=== PATIENT | male | born 1955 | race Caucasian/White ===

== ENCOUNTER → 2021-05-10 08:04 | Outpatient (CLI) | payer OTHER, SELFPAY ==
--- NOTE | 2021-05-10 | DI.ECHO.S_ITS ---
[facility]---------+ [facility] +---------+ : : [address] : [address] : : : : [id number] : : : : Phone: [phone] +---------+ Echocardiogram Report + + :Name: MITESH MENDOZA Study Date: 05/10/2021 Height: 71.5 in: :[facility] ReadingLocation: Weight: 260 lb : : Gender: Male BSA: 2.4 m2 : :: 1955 Age: 66 yrs BP: 167/99 mmHg: :Reason For Study: HYPERTENSION : :Ordering Physician: STEVO, : :NIKOLAS Montano Performed By: Isidra Murray : :Referring: NIKOLAS WHITESIDE : + + Interpretation Summary The left ventricle is mildly dilated. The ejection fraction is estimated to be 60-65%. In some of the apical views, there appears to be hypokinesis of mid to distal anterolateral wall. The right ventricle is at the upper limits of normal in size.The right ventricular systolic function is normal. There is mild mitral regurgitation. There is mild tricuspid regurgitation. The right ventricular systolic pressure is estimated to be at least 37 mmHg based on an estimated right atrial pressure of 3 mm Hg. The ascending aorta is moderately enlarged. 4.8 cm in diameter. Mild atherosclerotic plaque(s) in the aortic arch. Procedure: A two-dimensional transthoracic echocardiogram with color flow and Doppler was performed. The study quality was technically adequate. There is no prior echocardiogram noted for this patient. The patient was in sinus rhythm with heart rates between 53-68 bpm during the exam. Left Ventricle: The left ventricle is mildly dilated. Left ventricular wall thickness is mildly increased. There is no thrombus. The ejection fraction is estimated to be 60-65%. In some of the apical views, there appears to be hypokinesis of mid to distal anterolateral wall. No significant diastolic dysfunction. Right Ventricle: The right ventricle is at the upper limits of normal in size. The right ventricular systolic function is normal. Atria: The left atrium is mildly dilated. Right atrial size is normal. There is no Doppler evidence for an interatrial shunt. Mitral Valve: There is mild mitral annular calcification. There is mild mitral regurgitation. Aortic Valve: The aortic valve opens well. Aortic valve appears to be tricuspid. There is no aortic valve stenosis. There is trace aortic regurgitation. Tricuspid Valve: The tricuspid valve is normal. There is mild tricuspid regurgitation. The right ventricular systolic pressure is estimated to be at least 37 mmHg based on an estimated right atrial pressure of 3 mm Hg. Pulmonic Valve: The pulmonic valve leaflets are thin and pliable; valve motion is normal. There is trace pulmonic regurgitation. Great Vessels: The aortic root is mildly dilated. The ascending aorta is moderately enlarged. Mild atherosclerotic plaque(s) in the aortic arch. The IVC is of normal diameter and collapses greater than 50% with a sniff. This suggests a low right atrial pressure of 3 mm Hg. Pericardium/ Pleura There is no pericardial effusion. There is no pleural effusion. MMode/2D Measurements & Calculations LVIDd: 6.4 cm LVOT diam: 2.3 cm LVIDs: 4.4 cm Ao root diam: 4.1 cm FS: 31.9 % asc Aorta Diam: 4.8 cm IVSd: 1.1 cm Ao Arch Diam (Prox Trans): 3.8 cm LVPWd: 1.0 cm LV osei. diameter/BSA (cm/m^2): 2.7 LV sys. diameter/BSA (cm/m^2): 1.8 LA A2 area: 27.5 cm2 RA long axis: 6.1 cm LA A4 area: 22.6 cm2 RA area: 21.8 cm2 LA length (vol): 5.9 cm RA vol: 66.6 ml LA vol: 88.8 ml RA : 28.1 ml/m2 LA vol index: 37.5 ml/m2 IVC diam: 1.7 cm RVD1 (basal): 4.4 cm RVD2 (mid): 4.0 cm TAPSE: 2.5 cm Doppler Measurements & Calculations Ao V2 max: 155.8 cm/sec LVOT Max Jose De Jesus: 118.6 cm/sec Ao V2 mean: 103.7 cm/sec LV V1 max P.6 mmHg Ao max P.7 mmHg LV V1 VTI: 26.5 cm Ao mean P.0 mmHg RENNY(I,D): 3.5 cm2 Ao V2 VTI: 31.7 cm RENNY(V,D): 3.2 cm2 sev ratio: 0.84 RENNY indexed to BSA (cm^2/m^2): 1.5 MV E max jose de jesus: 83.5 cm/sec TR max jose de jesus: 291.1 cm/sec MV A max jose de jesus: 60.4 cm/sec TR max P.9 mmHg MV E/A: 1.4 PA V2 max: 131.8 cm/sec Med Peak E' Jose De Jesus: 10.6 cm/sec PA V2 mean: 79.7 cm/sec E/E' med: 7.8 PA mean P.9 mmHg Lat Peak E' Jose De Jesus: 10.3 cm/sec PA pr(Accel): 56.7 mmHg E/E' lat: 8.1 E/e' average: 8.0 MV dec time: 0.25 sec SV(LVOT): 111.7 ml Reading Physician:05:13 PM
== END ==
PROVIDERS: Family Provider Physician Assistant; PCP Family Medicine; Referring Provider Family Medicine; Visit Provider Family Medicine
DX: I08.1 Rheumatic disorders of both mitral and tricuspid valves (principal); I70.0 Atherosclerosis of aorta; I77.810 Thoracic aortic ectasia; I10 Essential (primary) hypertension; R61 Generalized hyperhidrosis
CPT/HCPCS: 93306

== ENCOUNTER → 2022-02-06 12:45 | Outpatient (CLI) | payer MEDICARE, OTHER, SELFPAY ==
--- NOTE | 2022-02-06 | DI.ECHO.S_ITS ---
[place] +---------+ Hospital +---------+ : : [address] : : : : [phone] : : : : Phone: [phone] +---------+ Echocardiogram Report + + :Name: MITESH MENDOZA Study Date: 02/06/2022 Height: 71 in : :[facility] ReadingLocation: Weight: 280 lb : : Gender: Male BSA: 2.4 m2 : :: 1955 Age: 67 yrs BP: 157/88 mmHg: :Reason For Study: THORACIC AORTIC ECTASIA : :Ordering Physician: : :ADWOA RUEDA Performed By: Isidra Murray : :Referring: ADWOA RUEDA : + + Interpretation Summary The left ventricle is normal in size and wall thickness. The ejection fraction is estimated to be 60-65%. There has been no significant change in LVEF since the previous exam. The right ventricle is at the upper limits of normal in size. The right ventricular systolic function is normal. There is mild to moderate aortic regurgitation. Compared to the prior echo study, there has been an increase in the severity of aortic regurgitation. The aortic root is mildly dilated. 4.1 cm in diameter. Unchanged from the previous study. The ascending aorta is severely enlarged. 5.3 cm in diameter. Previously 4.8 cm in diameter. The aortic arch is mildly enlarged. 3.9 cm in diameter. Previously 3.8 cm in diameter. BP: 157/88 mmHg Procedure: A two-dimensional transthoracic echocardiogram with color flow and Doppler was performed. The study quality was technically adequate. Comparison is made with the echocardiogram of 05/10/2021. The patient was in sinus rhythm with heart rates between 57-66 bpm during the exam. Left Ventricle: The left ventricle is normal in size and wall thickness. There is no thrombus. The ejection fraction is estimated to be 60-65%. There has been no significant change since the previous exam. There are no focal wall motion abnormalities. MV E/A: 1.0 Med Peak E' Jose De Jesus: 7.4 cm/sec E/E' med: 8.5. Right Ventricle: The right ventricle is at the upper limits of normal in size. The right ventricular systolic function is normal. Atria: The left atrium is mildly dilated. There has been no significant change since the previous study. Right atrial size is normal. There is no Doppler evidence for an interatrial shunt. Mitral Valve: There is mild mitral annular calcification. There is trace mitral regurgitation. Aortic Valve: The aortic valve is trileaflet. The aortic valve opens well. There is no aortic valve stenosis. There is mild to moderate aortic regurgitation. Compared to the prior echo study, there has been an increase in the severity of aortic regurgitation. Tricuspid Valve: The tricuspid valve is normal in structure and function. There is trace tricuspid regurgitation. The right ventricular systolic pressure is estimated to be at least 23 mmHg based on an estimated right atrial pressure of 3 mm Hg. Pulmonic Valve: The pulmonic valve leaflets are thin and pliable; valve motion is normal. There is mild pulmonic regurgitation. Great Vessels: The aortic root is mildly dilated. The ascending aorta is severely enlarged. The aortic arch is mildly enlarged. The IVC is of normal diameter and collapses greater than 50% with a sniff. This suggests a low right atrial pressure of 3 mm Hg. Pericardium/ Pleura There is no pericardial effusion. There is no pleural effusion. MMode/2D Measurements & Calculations LVIDd: 5.3 cm LVOT diam: 2.5 cm LVIDs: 3.9 cm Ao root diam: 4.1 cm FS: 26.0 % asc Aorta Diam: 5.3 cm EPSS: 0.65 cm Ao Arch Diam (Prox Trans): 3.9 cm IVSd: 1.0 cm LVPWd: 0.93 cm LV osei. diameter/BSA (cm/m^2): 2.2 LV sys. diameter/BSA (cm/m^2): 1.6 LA A2 area: 28.4 cm2 RA long axis: 5.8 cm LA A4 area: 22.1 cm2 RA area: 20.7 cm2 LA length (vol): 5.7 cm RA vol: 62.8 ml LA vol: 92.9 ml RA : 25.8 ml/m2 LA vol index: 38.2 ml/m2 IVC diam: 1.4 cm RVD1 (basal): 4.0 cm RVD2 (mid): 3.6 cm TAPSE: 2.3 cm Doppler Measurements & Calculations Ao V2 max: 170.3 cm/sec LVOT Max Jose De Jesus: 103.1 cm/sec Ao V2 mean: 107.7 cm/sec LV V1 max P.3 mmHg Ao max P.6 mmHg LV V1 VTI: 21.2 cm Ao mean P.5 mmHg RENNY(I,D): 3.0 cm2 Ao V2 VTI: 34.4 cm RENNY(V,D): 2.9 cm2 sev ratio: 0.61 RENNY indexed to BSA (cm^2/m^2): 1.2 MV E max jose de jesus: 62.3 cm/sec TR max jose de jesus: 225.5 cm/sec MV A max jose de jesus: 60.3 cm/sec TR max P.3 mmHg MV E/A: 1.0 PA V2 max: 134.1 cm/sec Med Peak E' Jose De Jesus: 7.4 cm/sec PA V2 mean: 81.2 cm/sec E/E' med: 8.5 PA mean P.9 mmHg Lat Peak E' Jose De Jesus: 10.1 cm/sec PA pr(Accel): 41.3 mmHg E/E' lat: 6.1 E/e' average: 7.3 MV dec time: 0.29 sec SV(LVOT): 101.6 ml Reading Physician:04:44 PM
== END ==
PROVIDERS: Family Provider Physician Assistant; PCP Student in an Organized Health Care Education/Training Program; Referring Provider Internal Medicine Cardiovascular Disease; Visit Provider Internal Medicine Cardiovascular Disease
DX: I77.810 Thoracic aortic ectasia (principal)
CPT/HCPCS: 93306

== ENCOUNTER → 2022-02-19 12:20 | Outpatient (CLI) | payer MEDICARE, OTHER, SELFPAY ==
--- NOTE | 2022-02-19 12:22 | DI.CT.S_ITS ---
PROCEDURE: CT ANGIO CHEST INDICATIONS: Thoracic aortic aneurysm, without rupture TECHNIQUE: After the administration of intravenous contrast, 2 mm thick sections acquired from the pulmonary apices to the posterior costophrenic angles. 3-dimensional maximum intensity projection (MIP) coronal and sagittal reformats were then acquired through the thorax. For radiation dose reduction, the following was used: automated exposure control, adjustment of mA and/or kV according to patient size. COMPARISON: None. FINDINGS: Image quality: Excellent. Aorta: The ascending aorta measures 5.3 cm. The aortic arch measures 3.0 cm. The descending aorta measures 3.0 cm. Lungs and pleura: No acute air space opacities. No pleural effusions or pneumothorax. Central and peripheral airways are patent and normal in caliber. Mediastinum: Heart size is normal. No pericardial effusion. No mediastinal adenopathy by size criteria. Thoracic aorta and central pulmonary arteries are normal in size. Esophagus is normal in caliber. No hiatal hernia. Bones and chest wall: No suspicious bony lesions. No vertebral body compression fractures. No axillary or supraclavicular adenopathy by size criteria. Thyroid gland is normal. Abdomen: Limited visualization of the upper abdomen shows no acute abnormality. IMPRESSION: 1. Aneurysmal dilatation of the ascending aorta measuring 5.3 cm. 2. No other significant abnormality of the chest. Dictated by: Donald Barrera M.D. on 02/19/2022 at 13:35 Approved by: Donald Barrera M.D. on 02/19/2022 at 13:43
== END ==
PROVIDERS: Family Provider Physician Assistant; PCP Student in an Organized Health Care Education/Training Program; Referring Provider Internal Medicine Cardiovascular Disease; Visit Provider Internal Medicine Cardiovascular Disease
DX: I71.2 Thoracic aortic aneurysm, without rupture (principal)
CPT/HCPCS: 71275; Q9967

== ENCOUNTER → 2022-08-01 10:07 | Outpatient (CLI) | payer MEDICARE, OTHER, SELFPAY ==
--- NOTE | 2022-08-01 | DI.CT.S_ITS ---
PROCEDURE: CT ANGIO CHEST INDICATIONS: Aneurysm of the ascending aorta, without rupture TECHNIQUE: After the administration of intravenous contrast, 2.5 mm thick sections acquired from the lung apices to the posterior lung bases. Maximum intensity projection (MIP) oblique sagittal reformats were then acquired parallel to the aortic arch. For radiation dose reduction, the following was used: automated exposure control. COMPARISON: [facility], CT, CT ANGIO CHEST, 02/19/2022, 13:17. FINDINGS: Image quality: Excellent. Aorta: There is mild aneurysmal dilatation of the ascending thoracic aorta measuring roughly 56 mm, which is slightly increased. No mural irregularity or contrast extravasation to suggest aortic injury. Mediastinum: No hematomas. Heart size is normal. No pericardial effusion. No mediastinal or hilar adenopathy by size criteria. Central pulmonary arteries are normal in size. Esophagus is normal in caliber. No hiatal hernia. Lungs and pleura: No acute airspace opacities. No pleural effusions or pneumothorax. Central and peripheral airways are patent and normal in caliber. Bones and chest wall: No axillary adenopathy by size criteria. Thyroid gland is within normal limits . No suspicious bony lesions. No vertebral body compression fractures. Abdomen: Visualized upper abdominal solid organs and bowel loops appear normal. IMPRESSION: 1. Increased aneurysmal dilatation of the ascending thoracic aorta. Dictated by: Natalie Chen M.D. on 08/01/2022 at 15:29 Transcribed by: AVERY on 08/01/2022 at 15:31 Approved by: Natalie Chen M.D. on 08/01/2022 at 16:44
--- NOTE | 2022-08-01 | DI.ECHO.S_ITS ---
[place] +---------+ [facility] +---------+ : : [address] : [address] : : : : [phone] : : : : Phone: [phone] +---------+ Echocardiogram Report + + :Name: MITESH MENDOZA Study Date: 08/01/2022 Height: 72 in : :[facility] ReadingLocation: Weight: 280 lb : : Gender: Male BSA: 2.5 m2 : :: 1955 Age: 67 yrs BP: 144/75 mmHg: :Reason For Study: ANEURSYM OF ASCENDING AORTA : :Ordering Physician: Maco, : :Dodie Performed By: EVA HORN : :Referring: Dodie Dewey : + + Interpretation Summary Normal sinus rhythm and uncontrolled hypertension. The left ventricle is normal in size and wall thickness. The ejection fraction is estimated to be 60-65%. Moderate LA enlargement; mildly dilated RV with normal RV function. There is mild to moderate aortic regurgitation. in the setting of mildly thickened and calcified leaflets, moderately dilated root (4.2 cm) and severely dilated ascending aorta measuring 5.6 cm in diameter. Compared to prior study 02/06/2022, ascending aorta diameter is up from 5.3 cm to 5.6 cm. Procedure: A two-dimensional transthoracic echocardiogram with color flow and Doppler was performed. The study quality was technically adequate. Comparison is made with the echocardiogram of 02/06/2022. The patient was in sinus rhythm with heart rates between 55-60 bpm during the exam. Left Ventricle: The left ventricle is normal in size. There is normal left ventricular wall thickness. Left ventricular systolic function is normal. The ejection fraction is estimated to be 60-65%. Right Ventricle: The right ventricle is mildly dilated. The right ventricular systolic function is normal. Atria: The left atrium is moderately dilated. The right atrium is normal in size. There is no Doppler evidence for an interatrial shunt. Mitral Valve: There is mild mitral annular calcification. There is mild mitral regurgitation. Aortic Valve: The aortic valve is trileaflet. The aortic valve opens well. There is no aortic valve stenosis. There is mild to moderate aortic regurgitation. Tricuspid Valve: The tricuspid valve is normal in structure and function. No tricuspid regurgitation. Pulmonary artery pressures cannot be estimated because of the lack of a measurable TR jet velocity. Pulmonic Valve: The pulmonic valve leaflets are thin and pliable; valve motion is normal. There is a trace or physiologic amount of pulmonic regurgitation. Great Vessels: The aortic root is mildly dilated. The aortic root is 4.2 cm. The ascending aorta is severely enlarged. The ascending aorta is 5.6 cm. The IVC is of normal diameter and collapses greater than 50% with a sniff. This suggests a low right atrial pressure of 3 mm Hg. Pericardium/ Pleura There is no pericardial effusion. There is no pleural effusion. MMode/2D Measurements & Calculations LVIDd: 5.9 cm LVOT diam: 2.3 cm LVIDs: 3.5 cm Ao root diam: 4.2 cm FS: 40.7 % asc Aorta Diam: 5.6 cm IVSd: 0.80 cm LVPWd: 0.90 cm LV osei. diameter/BSA (cm/m^2): 2.4 LV sys. diameter/BSA (cm/m^2): 1.4 LA A2 area: 29.3 cm2 RA long axis: 6.0 cm LA A4 area: 27.8 cm2 LA length (vol): 6.1 cm LA vol: 113.7 ml LA vol index: 46.3 ml/m2 LVLs ap4: 7.2 cm LVLd ap2: 8.0 cm LVLs ap2: 6.4 cm RV Mid_phl: 4.2 cm TAPSE_phl: 2.6 cm Doppler Measurements & Calculations Ao V2 max: 190.0 cm/sec LVOT Max Jose De Jesus: 122.0 cm/sec Ao V2 mean: 131.0 cm/sec LV V1 max P.0 mmHg Ao max P.4 mmHg LV V1 VTI: 28.1 cm Ao mean P.0 mmHg RENNY(I,D): 3.0 cm2 Ao V2 VTI: 38.8 cm RENNY(V,D): 2.7 cm2 sev ratio: 0.72 RENNY indexed to BSA (cm^2/m^2): 1.2 AI P1/2t: 524.0 msec AI dec slope: 199.0 cm/sec2 MV E max jose de jesus: 90.8 cm/sec PA V2 max: 108.0 cm/sec MV A max jose de jesus: 58.0 cm/sec PA V2 mean: 66.3 cm/sec MV E/A: 1.6 PA mean P.0 mmHg Med Peak E' Jose De Jesus: 9.3 cm/sec PA pr(Accel): 18.7 mmHg E/E' med: 9.8 Lat Peak E' Jose De Jesus: 11.6 cm/sec E/E' lat: 7.8 E/e' average: 8.8 MV dec time: 0.24 sec SV(LVOT): 116.7 ml AV P1/2t-pr_phl: 524.0 msec AV VR_phl: 0.64 RENNY(VTI)/BSA_phl: 1.2 MV P1/2t-pr_phl: 70.0 msec Electronically signed by: Mindi Retana M.D. on Reading Physician:08/01/2022 11:20 PM
[2022-08-01 11:03] LABS: Estimated Glomerular Filt Rate > 60 mL/min (>60)
== END ==
PROVIDERS: Radiology Diagnostic Radiology; Family Provider Physician Assistant; PCP Student in an Organized Health Care Education/Training Program; Referring Provider Nurse Practitioner Family; Visit Provider Nurse Practitioner Family
DX: I71.21 Aneurysm of the ascending aorta, without rupture (principal); I08.0 Rheumatic disorders of both mitral and aortic valves
CPT/HCPCS: 36415; 71275; 82565; 93306; Q9967

== ENCOUNTER → 2023-11-11 07:51 | Outpatient (CLI) | payer MEDICARE, OTHER, SELFPAY ==
--- NOTE | 2023-11-11 07:53 | DI.ECHO.S_ITS ---
[place] +---------+ Hospital : : [address] : : [id number] : : Phone: [phone] Echocardiogram Report + + :Name: MITESH MENDOZA Study Date: 11/11/2023 Height: 72 in : :[facility] ReadingLocation: Weight: 270 lb : : Gender: Male BSA: 2.4 m2 : :: 1955 Age: 68 yrs BP: 124/69 mmHg: :Reason For Study: XENOGENIC HEART VALVE : :Ordering Physician: MOHIT, : :ADWOA Performed By: Isidra Murray : :Referring: ADWOA RUEDA : + + Interpretation Summary Procedures: 1. Ascending Aortic Aneurysm repair ( 34 mm Hemashield 4 branch graft sn [id number]) 2. Aortic valve replacement (27 mm Magna sn [id number]), on October 08, 2022: The left ventricle is normal in size. There is mild concentric left ventricular hypertrophy. The left ventricular ejection fraction is normal. The ejection fraction is estimated to be 60-65%. No significant change in LVEF from the previous study. The right ventricle is grossly normal size. The right ventricular systolic function is normal.TAPSE: 2.0 cm There is a bioprosthetic aortic valve. New finding. The prosthetic aortic valve is well-seated. The peak aortic velocity is 1.98 m/sec. The aortic valve mean gradient is 12 mmHg. No aortic regurgitation is present. Previously mild to moderate AR. There is mild to moderate tricuspid regurgitation. Compared to the prior echo exam, there has been an increase in TR severity. The right ventricular systolic pressure is estimated to be at least 34 mmHg based on an estimated right atrial pressure of 3 mm Hg. asc Aorta Diam: 3.7 cm. In August 01, 2022, ascending aorta diameter was 5.6 cm. Ao Arch Diam (Prox Trans): 3.9 cm, unchanged from the previous study. Procedure: A two-dimensional transthoracic echocardiogram with color flow and Doppler was performed. The study quality was technically difficult. Comparison is made with the echocardiogram of 08/01/2022. The patient was in sinus rhythm with heart rates between 59-63 bpm during the exam. Left Ventricle: The left ventricle is normal in size. There is mild concentric left ventricular hypertrophy. There is no thrombus. The ejection fraction is estimated to be 60-65%. The left ventricular ejection fraction is normal. There are no focal wall motion abnormalities. MV E/A: 1.4 Med Peak E' Jose De Jesus: 6.6 cm/sec E/E' med: 10.7 No significant diastolic dysfunction. Right Ventricle: The right ventricle is not well visualized. The right ventricle is grossly normal size. The right ventricular systolic function is normal. Atria: The left atrial size is normal. The left atrium has significantly decreased in size since the prior echo exam. The right atrium is mildly dilated. There is no Doppler evidence for an interatrial shunt. Mitral Valve: There is mild mitral annular calcification. There is mild mitral regurgitation. Compared to the prior echo study, there has been no change in the severity of mitral regurgitation. Aortic Valve: There is a bioprosthetic aortic valve. The prosthetic aortic valve is well-seated. The peak aortic velocity is 1.98 m/sec. The aortic valve mean gradient is 12 mmHg. No aortic regurgitation is present. Tricuspid Valve: The tricuspid valve is normal. The right ventricular systolic pressure is estimated to be at least 34 mmHg based on an estimated right atrial pressure of 3 mm Hg. There is mild to moderate tricuspid regurgitation. Compared to the prior echo exam, there has been an increase in TR severity. Pulmonic Valve: The pulmonic valve is not well seen, but is grossly normal. There is mild pulmonic regurgitation. Great Vessels: The dimensions of the ascending aorta are normal. The IVC is of normal diameter and collapses greater than 50% with a sniff. This suggests a low right atrial pressure of 3 mm Hg. Pericardium/ Pleura There is no pericardial effusion. There is no pleural effusion. MMode/2D Measurements & Calculations LVIDd: 5.3 cm LVOT diam: 2.3 cm LVIDs: 3.5 cm asc Aorta Diam: 3.7 cm FS: 34.4 % Ao Arch Diam (Prox Trans): 3.9 cm EPSS: 0.87 cm IVSd: 1.1 cm LVPWd: 1.2 cm LV osei. diameter/BSA (cm/m^2): 2.2 LV sys. diameter/BSA (cm/m^2): 1.4 LA A2 area: 19.5 cm2 RA long axis: 6.0 cm LA A4 area: 20.5 cm2 RA area: 26.3 cm2 LA length (vol): 5.5 cm RA vol: 97.7 ml LA vol: 61.4 ml RA : 40.4 ml/m2 LA vol index: 25.4 ml/m2 IVC diam: 1.7 cm TAPSE: 2.0 cm Doppler Measurements & Calculations Ao V2 max: 198.6 cm/sec LVOT Max Jose De Jesus: 120.7 cm/sec Ao V2 mean: 151.1 cm/sec LV V1 max P.8 mmHg Ao max P.8 mmHg LV V1 VTI: 24.0 cm Ao mean P.0 mmHg RENNY(I,D): 2.2 cm2 Ao V2 VTI: 45.1 cm RENNY(V,D): 2.6 cm2 sev ratio: 0.53 RENNY indexed to BSA (cm^2/m^2): 0.92 MV E max jose de jesus: 71.0 cm/sec TR max jose de jesus: 276.5 cm/sec MV A max jose de jesus: 50.4 cm/sec TR max P.6 mmHg MV E/A: 1.4 PA V2 max: 114.3 cm/sec Med Peak E' Jose De Jesus: 6.6 cm/sec PA V2 mean: 78.5 cm/sec E/E' med: 10.7 PA mean P.7 mmHg Lat Peak E' Jose De Jesus: 10.9 cm/sec PA pr(Accel): 34.5 mmHg E/E' lat: 6.5 E/e' average: 8.6 MV dec time: 0.24 sec SV(LVOT): 100.9 ml Reading Physician:12:14 PM
== END ==
PROVIDERS: Family Provider Physician Assistant; PCP Student in an Organized Health Care Education/Training Program; Referring Provider Internal Medicine Cardiovascular Disease; Visit Provider Internal Medicine Cardiovascular Disease
DX: I08.1 Rheumatic disorders of both mitral and tricuspid valves (principal); Z95.3 Presence of xenogenic heart valve; Z86.79 Personal history of other diseases of the circulatory system; Z98.890 Other specified postprocedural states
CPT/HCPCS: 93306